=== PATIENT | male | born 1960 | race African-American/Black ===

== ENCOUNTER 2024-11-12 11:39 | Emergency (ER) | payer SELFPAY ==
[~2024-11-12] VITALS: Ht 172.7 cm; Wt 73.0 kg
[~2024-11-12 11:39] MED LIST: PREDNISONE; PRO AIR
[2024-11-12 11:43] VITALS: O2SAT 99
[2024-11-12] MEDS: ACETAMINOPHEN 500MG TABLET PO ONE (12:48)
[2024-11-12] MEDS: BACITRACIN ZINC OINT UDPKT TOP ONE (12:48)
[2024-11-12 13:25] VITALS: BP 155/74; PULSE 75; RESP 19; TEMP 36.7; O2SAT 99
== END 2024-11-12 13:27 | disposition home or self-care (01) ==
LOC: ER 11:44
DX: T25.111A Burn of first degree of right ankle, initial encounter (principal); X08.8XXA Exposure to other specified smoke, fire and flames, initial encounter; Y93.89 Activity, other specified; Y92.89 Other specified places as the place of occurrence of the external cause; Y99.8 Other external cause status
CPT/HCPCS: 16000; 99283; Z7610 ×2